=== PATIENT | female | born 1940 | race Caucasian/White ===

== ENCOUNTER → 2016-12-15 | Outpatient (CLI) | payer MEDICARE, OTHER | END | disposition home or self-care (01) | LOC: GMAH 16:48 | PROVIDERS: ATTEND Family Medicine | DX: N39.0 Urinary tract infection, site not specified (principal) ==

== ENCOUNTER → 2017-01-08 | Outpatient (CLI) | payer MEDICARE, OTHER | END | disposition home or self-care (01) | LOC: GMA 14:25 | PROVIDERS: ATTEND Nurse Practitioner Family | DX: N39.0 Urinary tract infection, site not specified (principal) ==

== ENCOUNTER → 2017-02-17 | Outpatient (CLI) | payer MEDICARE, OTHER | END | disposition home or self-care (01) | LOC: GMAH 11:33 | PROVIDERS: ATTEND Family Medicine | DX: E78.2 Mixed hyperlipidemia (principal) ==

== ENCOUNTER → 2017-08-28 | Outpatient (CLI) | payer MEDICARE, OTHER ==
--- NOTE | 2017-08-31 13:50 | MRI ---
EXAM DESCRIPTION: Lumbar Spine w/o Contrast CLINICAL HISTORY: RADICULOPATHY COMPARISON: None Available. TECHNIQUE: MRI of the lumbar spine is performed according to our usual protocol with axial and sagittal multi sequence imaging. FINDINGS: Scoliosis of the lumbar spine convex to the right centered at the L1-2 level and to the left centered at the L4-5 level is present. Multilevel disc degeneration and hypertrophic changes particularly left sided in the upper lumbar spine and right-sided in the lower lumbar spine is apparent. An oval approximate 3 cm benign cyst of the upper pole left kidney is noted without retroperitoneal or other paraspinous abnormalities. The conus is positioned at T12-L1 without intradural or intramedullary abnormality. The level endplate and adjacent reactive marrow edematous changes related to the degenerative disc disease is apparent with a modest less than 2 cm hemangioma involving the central L2 vertebral body. Disc desiccation and narrowing without spinal stenosis in the lower thoracic spine and thoracolumbar junction is noted. L1-2: Disc desiccation and degeneration left side worse than right with moderate AP diameter canal stenosis and left greater than right foraminal and recess stenosis. L2-3: Severe multifactorial circumferential stenosis with disc degeneration and narrowing worse on the left than the right with posterior element hypertrophy and severe left and milder right foraminal stenosis. Broad-based disc bulge. L3-4: Very severe central spinal canal stenosis with posterior element and facet hypertrophy as well as broad-based annular bulge with severe left and moderately severe right foraminal stenosis. L4-5: Severe disc degeneration particularly right-sided with disc space narrowing and posterior element hypertrophy with thecal sac lower limits of normal with marked encroachment upon the right lateral recess and right L4 neural foramen. Advanced right worse than left facet arthropathy and ligamentum flavum hypertrophy. L5-S1: Adequate central canal with disc desiccation and annular bulge with advanced facet arthropathy with symmetric moderate L5 foraminal stenosis. IMPRESSION: 1. Markedly abnormal examination with modest AP diameter canal stenosis L1 to moderate circumferential stenosis L2-3 and severe circumferential stenosis L3-4. Changes are worse involving the left lateral recesses and foramina. 2. Lower limits of normal thecal sac L4-5 with right lateral recess and foraminal stenosis 3. Adequate central canal L5-S1 with bilateral foraminal stenosis from facet disease and annular bulge. 4. S-shaped scoliosis of the lumbar spine convex to the right in the upper lumbar spine and to the left in the lower lumbar spine Electronically signed by: Leo Mackey MD 08/31/2017 1:49 PM [facility]
== END | disposition home or self-care (01) ==
LOC: MRI 15:10
PROVIDERS: ATTEND Family Medicine
DX: M54.16 Radiculopathy, lumbar region (principal)

== ENCOUNTER → 2018-02-24 | Outpatient (CLI) | payer OTHER | LOC: GMAH 11:14 | PROVIDERS: ATTEND Family Medicine | DX: E11.9 Type 2 diabetes mellitus without complications (principal); N39.0 Urinary tract infection, site not specified ==

== ENCOUNTER → 2018-05-25 | Outpatient (CLI) | payer OTHER | LOC: GMAH 16:39 | PROVIDERS: ATTEND Family Medicine | DX: R55 Syncope and collapse (principal) ==

== ENCOUNTER → 2019-03-02 | Outpatient (CLI) | payer OTHER | LOC: GMAH 10:52 | PROVIDERS: ATTEND Family Medicine | DX: I10 Essential (primary) hypertension (principal); R55 Syncope and collapse ==

== ENCOUNTER → 2020-04-12 | Outpatient (CLI) | payer OTHER | LOC: GMAM 10:14 | PROVIDERS: ATTEND Family Medicine | DX: E78.2 Mixed hyperlipidemia (principal); E11.9 Type 2 diabetes mellitus without complications; I10 Essential (primary) hypertension ==

== ENCOUNTER → 2020-08-06 | Outpatient (CLI) | payer OTHER | LOC: GMA MATASK 10:59 | PROVIDERS: ATTEND Family Medicine | DX: E78.2 Mixed hyperlipidemia (principal); D50.9 Iron deficiency anemia, unspecified; E11.9 Type 2 diabetes mellitus without complications ==

== ENCOUNTER → 2020-11-12 | Outpatient (CLI) | payer OTHER | LOC: GMA MATASK 11:27 | PROVIDERS: ATTEND Family Medicine | DX: D50.9 Iron deficiency anemia, unspecified (principal); I10 Essential (primary) hypertension ==